=== PATIENT | male | born 2000 | race Caucasian/White ===

== ENCOUNTER 2021-03-31 05:02 | Emergency (ER) | payer OTHER ==
[~2021-03-31] VITALS: Ht 182.9 cm; Wt 68.0 kg
[~2021-03-31 05:02] MED LIST: NOHOMEMEDICATIONS; PREDNISONE 20 M20 M1 PO; VENTOLIN HFA INH8 GM IH
[2021-03-31 05:31] LABS: HEMATOCRIT 47.8 % (42.0-52.0); HEMOGLOBIN 16.3 gm/dL (14.0-18.0); MCH 29.7 pg (26.0-34.0); MCHC 34.1 g/dL (28.0-37.0); MCV 87.1 fL (80.0-100.0); MPV 7.7 fl. (7.2-11.1); NUCLEATED RBCS 0 /100WBC; PLATELET COUNT* 371 thou/uL (150-400); RBC 5.49 mil/uL (4.50-6.00); RDW-CV 12.8 % (10.5-14.5)
[2021-03-31 05:36] LABS: CALCIUM 9.8 mg/dL (8.5-10.1); POTASSIUM 3.7 mmol/L (3.5-5.1)
[2021-03-31 05:41] LABS: TOTAL BILIRUBIN 1.2 mg/dL (<0.1-1.0)
[2021-03-31 05:52] LABS: ABSOLUTE EOSINOPHILS 0.2 thou/uL (0.0-0.7); ABSOLUTE LYMPHOCYTES 0.2 thou/uL (0.8-5.3); ABSOLUTE MONOCYTES 0.5 thou/uL (0.0-1.2); ABSOLUTE NEUTROPHILS 15.2 thou/uL (1.6-8.1); ANISOCYTOSIS 1+; PLATELET ESTIMATE ADEQUATE; POIKILOCYTOSIS 1+
[2021-03-31] MEDS ORDERED: ZOFRAN ODT4 MG PO (06:36)
[2021-03-31 06:50] VITALS: BP 120/88
== END 2021-03-31 06:50 | disposition home or self-care (01) ==
LOC: M.ERS 05:02
PROVIDERS: Emergency Medicine
DX: R11.10 Vomiting, unspecified (principal); R19.7 Diarrhea, unspecified; Z79.899 Other long term (current) drug therapy